=== PATIENT | female | born 1960 | race Caucasian/White ===

== ENCOUNTER → 2017-05-22 | Day surgery (SDC) | payer BC ==
[~2017-05-22] MED LIST: ASPIRIN 81MG TA81 MG PO; BACTRIM DS 8001 TA1 PO; CITRACAL + D 251 TAB PO; EVISTA60 MG PO; OXYBUTYNIN CHLO10 MG PO; VITAMIN D1000 IU PO
--- NOTE | 2017-05-22 08:25 | Operative Note ---
Endoscopy Report Date: 05/22/17 Preoperative diagnosis: Epigastric pain Procedure Type of procedure: Esophagogastroduodenoscopy with biopsies Indications: 57-year-old white female referred from Dr. Yip for upper endoscopy. I previously performed colonoscopy on the patient 3 years ago. In December of this year she developed significant epigastric and RIGHT subcostal pain which was quite severe. She was evaluated in the emergency department without any cardiac etiology. The week after that she had some vomiting. Patient continues to have some occasional pain and postprandial vomiting. She underwent gallbladder workup including ultrasound which is negative for gallstones and HIDA scan which revealed an ejection fraction of 78 percent. Plan was made for upper endoscopy. Consent was obtained and patient was taken to same-day surgery endoscopy procedure room. She was positioned in a lateral position. Adequate intravenous sedation was achieved with titration of 6 mg Versed and 150 g fentanyl for the duration of procedure. Olympus endoscope was inserted via the oropharynx. Esophagus appeared normal. Stomach was cannulated and insufflated. Retroflexion revealed no evidence of any significant hiatal hernia. Overall stomach lining appeared relatively unremarkable. Gastric antral mucosal biopsy was obtained for CLOtest for H. pylori. Pylorus was traversed. Duodenal bulb and sweep were unremarkable. Biopsies were obtained. Gastric biopsy was obtained. Stomach was desufflated and the endoscope was withdrawn. Follow-Up Follow-Up: Overall upper endoscopy appeared relatively unremarkable. She may benefit from proton pump inhibitors and I will go ahead and initiate this. I'll see her in the office in about 4 weeks. Treat H. pylori if positive. at 0824
[2017-05-22 11:01] VITALS: BP 111/68
== END ==
LOC: SDC 07:22
PROVIDERS: Surgery
PROC: 0DB78ZX Excision of Stomach, Pylorus, Via Natural or Artificial Opening Endoscopic, Diagnostic (ICD-10-PCS; 2017-05-22)
PROC: 0DB68ZX Excision of Stomach, Via Natural or Artificial Opening Endoscopic, Diagnostic (ICD-10-PCS; 2017-05-22)
PROC: 0DB98ZX Excision of Duodenum, Via Natural or Artificial Opening Endoscopic, Diagnostic (ICD-10-PCS; principal; 2017-05-22 08:00)
DX: R10.13 Epigastric pain (principal); R11.2 Nausea with vomiting, unspecified

== ENCOUNTER → 2017-06-11 | Outpatient (CLI) | payer BC ==
[2017-06-11 13:04] LABS: BUN 16 mg/dL (7-18)
[2017-06-11 13:10] LABS: GFR (ESTIMATED) 74 ML/MIN (59-)
== END ==
LOC: LAB 11:25
PROVIDERS: Surgery
DX: R63.4 Abnormal weight loss (principal); R10.13 Epigastric pain; R11.0 Nausea; Z01.812 Encounter for preprocedural laboratory examination